=== PATIENT | male | born 1960 | race Two or more races ===

== ENCOUNTER 2024-08-10 00:11 | Emergency (ER) | payer OTHER, SELFPAY ==
[2024-08-10 00:13] VITALS: BMI 27.1
--- NOTE | 2024-08-10 00:25 | XR_ITS ---
Examination: CT brain head without contrast. 2-D sagittal coronal reconstructions Date and time of exam:August 10, 2024 0220 hours INDICATIONS: Injury to the head today, head pain CTDI: vol (mGy):53 DLP: (mGycm):1106 Technique: Multiple CT axial sections of the brain have been obtained, 5 mm slice thickness. Contrast has not been administered. 2-D sagittal, coronal reconstructions have been obtained Low dose protocols were performed. One or more of the following dose reduction techniques were used; automated exposure control, adjustment of the mA and/or KV according to patient size, use of iterative reconstruction technique. Findings: No significant ventricular enlargement. Intra-axial or extra-axial hemorrhage density is not seen. No mass effect or midline shift Basal cisterns are not remarkable. Fourth ventricle is midline. Cranial vault intact. Impression: Negative for acute hemorrhage, mass effect or midline shift
--- NOTE | 2024-08-10 00:25 | XR_ITS ---
Examination: CT cervical spine without contrast 2-D sagittal reconstructions 2-D coronal reconstructions 3-D reconstructions. Exam date and time:August 10, 2024 0220 hours INDICATIONS: Injury to the neck today, laceration to the head neck pain CTDI:vol (mGy) 8.37 DLP: (mGycm) 184 Technique: Multiple 2 mm axial sections of the cervical spine have been obtained. The coronal and sagittal reconstructions have been obtained. 3-D reconstructions have been obtained. Low dose protocols were performed. One or more of the following dose reduction techniques were used; automated exposure control, adjustment of the mA and/or KV according to patient size, use of iterative reconstruction technique. Findings: Axial sections demonstrate intact base of the skull. C1 exhibit satisfactory relationship to the odontoid. No acute cervical vertebral body fracture seen. Alignment posterior spinous processes satisfactory. Impression: No acute cervical fracture.
[2024-08-10 00:29] VITALS: BP 129/75; PULSE 67; RESP 20; TEMP 36.9; O2SAT 96
[2024-08-10] MEDS: DIPHTH,PERTUSS(ACELL),TET VAC 0.5 ML SYR- ADULT IMi (00:45)
--- NOTE | 2024-08-10 03:05 | PRELIM_ITS ---
CT scan of the head without intravenous contrast (axial sections with sagittal and coronal reformats) August 10, 2024 at 0220 hours Clinical History: Something fell on head. Comparison: None. Findings: There is no evidence of intracranial hemorrhage, mass effect or midline shift. There are periventricular white matter hypodensities, compatible with chronic small vessel ischemia. There is mild volume loss. The calvarium is intact. The mastoid air cells and the visualized paranasal sinuses are clear. Impression: No evidence of intracranial hemorrhage, midline shift or calvarial fracture. Periventricular chronic small vessel ischemia and volume loss. Report Electronically Signed By: Lb Denny 08/10/2024 3:04:18 AM [EST]
--- NOTE | 2024-08-10 03:06 | PRELIM_ITS ---
CT scan of the cervical spine without intravenous contrast (axial sections with sagittal and coronal reformats) August 10, 2024 0220 hours Clinical History: Something fell on head. Comparison: None. Findings: There is no fracture or subluxation. The prevertebral soft tissues are unremarkable. Degenerative changes of the imaged portions of the spine. No acute fractures. Chronic multilevel disc disease. Loss of the physiologic cervical lordosis. Posterior osteophytes. Chronic multilevel posterior discal bulging. Impression: No evidence of fracture or subluxation. Chronic multilevel posterior discal bulging. Consider follow-up with MRI if clinically indicated. Report Electronically Signed By: Lb Denny 08/10/2024 3:05:09 AM [EST]
--- NOTE | 2024-08-10 03:15 | PD.EDWOUND ---
ED Wound/Laceration-RME/HPI General Chief Complaint: Head Injury Stated Complaint: METAL BARBRA FELL ON MY HEAD, HEAD INJURY, LAC Time Seen by Provider: 08/10/24 00:31 Arrival date/time: 08/10/24 00:11 64M with history of HTN and DM presents to ED with dizziness and head lac after a metal barbra fell on his head. Patient denies LOC, AMS, seizures, N/V, and vision changes. Patient has not had a tetanus shot in the past 5 years. Limitations: no limitations Related Data Home Medications ?Medication ?Instructions ?Recorded ?Confirmed Benazepril Hcl * (LOTENSIN *) 10 mg PO QDAY #0 tabs 10/18/16 metformin 1,000 mg tablet 1,000 mg PO BID #0 tabs 10/18/16 (Glucophage) Allergies Allergy/AdvReac Type Severity Reaction Status Date / Time No Known Allergies Allergy Verified 08/10/24 00:13 Review of Systems Review of Systems Systems Reviewed: All systems reviewed, normal except as documented Constitutional Constitutional: Reports system reviewed and no additional complaints, except as documented, Reports as per HPI, Denies fever(s) and Reports headache(s) ENT Ears, Nose, Mouth, and Throat: Reports as per HPI, Denies disequilibrium, Reports headache(s) and Reports vertigo Cardiovascular Cardiovascular: Reports system reviewed and no additional complaints, except as documented, Denies chest pain and Denies dyspnea Respiratory Respiratory: Reports system reviewed and no additional complaints, except as documented, Denies cough and Denies dyspnea Gastrointestinal Gastrointestinal: Reports system reviewed and no additional complaints, except as documented, Denies abdominal pain, Denies nausea and Denies vomiting Integumentary/Breasts Skin/Breast: Reports as per HPI and Reports skin pain Neurologic Neurologic: Reports system reviewed and no additional complaints, except as documented, Denies confusion, Denies disequilibrium, Reports headache(s) and Reports vertigo Psychiatric Psychiatric: Denies confusion Past Medical History Social History SMOKING STATUS: Never smoker ED Exam General Limitations: Present no limitations General appearance: Present alert and in no apparent distress Expanded Head Exam Head exam physical: Present laceration (post scalp) Eye Eye exam: Present normal appearance, PERRL and EOMI ENT ENT exam: Present normal exam, normal oropharynx and mucous membranes moist Neck Neck exam: Present normal inspection, full ROM and trachea midline Chest Chest inspection: Present normal inspection and symmetric chest wall rise Respiratory Respiratory exam: Present normal lung sounds bilaterally Cardiovascular Cardiovascular exam: Present regular rate, normal rhythm and normal heart sounds Abdominal Exam Abdominal exam: Present soft and normal bowel sounds Extremities Exam Extremities exam: Present normal inspection and full ROM Back Exam Back exam: Present normal inspection and full ROM Neurological Exam Neurological exam: Present alert, oriented X3 and CN II-XII intact Psychiatric Psychiatric exam: Present normal affect and normal mood Skin Skin exam: Present warm, dry, intact and normal color Course Quality Measures none Orders Category Date Time Status Stapler to Beside ONCE Care 08/10/24 03:54 Active Wound Care NOW Care 08/10/24 00:[address] cervical spine wo con Stat Exams 08/10/24 00:[address] head/brain wo con Stat Exams 08/10/24 00:25 Taken TET,DIP/PERT AC (Adult)-Tdap [Boostrix Adult (Tdap) Med 08/10/24 00:32 Discontinued Vacc] 0.5 ml IMI .ONCE ONE Vital Signs Vital signs: Vital Signs Temperature 98.5 F 08/10/24 00:29 Pulse Rate 67 08/10/24 00:29 Respiratory Rate 20 08/10/24 00:29 Blood Pressure 129/75 08/10/24 00:29 Pulse Oximetry (%) 96 08/10/24 00:29 Oxygen Delivery Method Room Air 08/10/24 00:29 O2 at 96% on RA and WNLs Wound / Laceration MDM Narrative MDM Narrative:: 64M with history of HTN and DM presents to ED with dizziness and head lac after a metal barbra fell on his head. Patient denies LOC, AMS, seizures, N/V, and vision changes. Patient has not had a tetanus shot in the past 5 years. Physical exam reveals normal pupil response and EOM. 1 cm lac on posterior scalp. Gait normal. Neck ROM intact. Patient is afebrile, calm, and alert. CT unremarkable. Wound cleaned/irrigated and closed with 2 joss. Given psychotherapist counselor to have them removed in about 10 days. Patient data External records reviewed:: [facility] previous records Clinical information provided by:: patient Social determinants that could affect healthcare access:: none Patient has the following chronic illnesses:: HTN and DM How is presenting disease/condition affected by chronic disease/condition?: uneffected by Evaluation data The following diagnostics were reviewed and interpreted by me:: radiology exam(s) Lab and/or radiology exams considered but not ordered:: ordered Interpretation Summary: above Medications / Prescriptions Medications or Prescriptions considered but not ordered:: ordered Medication administrations:: Medication Administration History Discontinued Medications Diphtheria/Tetanus/Acell Pertussis (Diphth,Pertuss(Acell),Tet Vac 0.5 Ml Syr- Adult) 0.5 ml IMi .ONCE ONE Stop: 08/10/24 00:33 Last Admin: 08/10/24 00:45 Dose: 0.5 ml Documented By: KF above Consultations Consultation(s) initiated? (list below): No Diagnosis Wound Differential Diagnosis: laceration, abrasion, avulsion of skin and other (CHI) Most likely diagnosis given after review of the tests above:: CHI and laceration Admission Indicated Admission indicated?: not indicated Admission Request Was there a request for admission?: No Disposition Plan Disposition Plan: Discharge Discharge Attestation Discharge Attestation: The patient and all family members were given an opportunity to ask questions and understood the discharge instructions. Discharge instructions specifically effects, indications for sooner follow up or return to the emergency department, and the expected course of current diagnosis. Patient condition: Stable Discharge Plan Plan Patient Disposition: HOME (Self Care) Discharge Disposition comment: Stable Prescriptions/Referrals Prescriptions/Med Rec: No Action metformin [Glucophage] 1,000 MG tablet 1,000 mg PO BID Qty: 0 Benazepril Hcl * (LOTENSIN *) 10 MG tablet 10 mg PO QDAY Qty: 0 Referrals: Ace Hazel [Primary Care Provider] - In 1 week Problem List Clinical Impression: Closed head injury, Laceration Patient/Caregiver Discharge Instructions Education Materials: ED Head Injury (Adult), ED Laceration Scalp Sutr Stap Ch Additional Instructions: Please follow-up with PCP within 24-48 hours and return immediately if symptoms worsen. Have ojss removed in about 10 days. 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 Galeas
[2024-08-10 04:06] VITALS: BP 142/81; PULSE 60; RESP 17; TEMP 36.7; O2SAT 98
== END 2024-08-10 04:17 | disposition home or self-care (01) ==
PROVIDERS: Emergency Provider Emergency Medicine; PCP Physician Assistant
DX: S01.01XA Laceration without foreign body of scalp, initial encounter (principal); S09.90XA Unspecified injury of head, initial encounter; S19.9XXA Unspecified injury of neck, initial encounter; W22.8XXA Striking against or struck by other objects, initial encounter; Z23 Encounter for immunization
CPT/HCPCS: 12001; 70450; 72125; 90471; 90715; 99284